=== PATIENT | female | born 1960 | race Caucasian/White ===

== ENCOUNTER → 2016-09-16 | Outpatient (CLI) | payer OTHER ==
--- NOTE | 2016-09-16 09:20 | DIAGNOSTIC IMAGING REPORT ---
CT OF THE CHEST WITHOUT IV CONTRAST CLINICAL HISTORY: Extrinsic asthma. Abnormal chest CT. Follow-up examination. PULMONARY NODULES COMPARISON STUDY: Outside chest CT dated 08/20/2015 CT DOSE: 365.68 mGy.cm TECHNIQUE: CT of the thorax was performed from the thoracic inlet to the lung bases. Images are reviewed in the axial, sagittal, and coronal planes. IV contrast was not administered for this examination. FINDINGS: Thyroid: Imaged portions of the thyroid gland are normal in appearance. Thoracic aorta: The thoracic aorta is normal in course and caliber, noting standard 3 vessel arch anatomy. Heart: The heart is normal in size and configuration, without pericardial effusion. Lungs and pleural spaces: No pleural effusions are visualized. There is no focal pulmonary consolidation. There is a 4 mm left lower lobe pulmonary nodule on image #252/331. There is a 6 mm right lower lobe perifissural nodule as visualized in image #175/331. There is a 2 mm left lower lobe pulmonary nodule as visualized in image #212/331. There is a 2.5 mm left upper lobe perifissural nodule as visualized in image #91/331. There is been interval resolution of the groundglass opacities within the right upper lobe. Mediastinum: There is no mediastinal lymphadenopathy. Jailyn: There is no evidence of pathologic hilar adenopathy given the limitations of a noncontrast study Axilla: Clear. Upper abdomen: There are postsurgical changes of a prior cholecystectomy Skeletal structures: There are no lytic or blastic osseous lesions. IMPRESSION: 1. Subcentimeter pulmonary nodules, stable or smaller than on the prior July 2015 study. 2. No evidence of focal pulmonary consolidation 3. No evidence of pathologic adenopathy. Electronically signed by: Farrukh Hagan M.D. 09/16/2016 9:19 AM Dictated Date/Time: 09/16/2016 9:12 AM
== END | disposition home or self-care (01) ==
LOC: C.CTS 08:58
PROVIDERS: ATTEND Internal Medicine Pulmonary Disease
DX: R93.8 Abnormal findings on diagnostic imaging of other specified body structures (principal)

== ENCOUNTER → 2017-04-04 | Outpatient (CLI) | payer OTHER ==
--- NOTE | 2017-04-04 15:30 | DIAGNOSTIC IMAGING REPORT ---
NECK ULTRASOUND CLINICAL HISTORY: Right lateral neck swelling. Evaluate for mass. COMPARISON STUDY: None. TECHNIQUE: Sonography of the neck at site of palpable abnormality and swelling was performed. FINDINGS: No mass, enlarged lymph node, fluid collection or other sonographic abnormality was identified within the right lateral neck. IMPRESSION: No sonographic abnormality identified within the right neck. Electronically signed by: Eugene Morfin M.D. 04/04/2017 3:29 PM Dictated Date/Time: 04/04/2017 3:28 PM
== END | disposition home or self-care (01) ==
LOC: C.ULTRBC 15:02
PROVIDERS: ATTEND Family Medicine
DX: R22.1 Localized swelling, mass and lump, neck (principal)

== ENCOUNTER → 2017-06-10 | Outpatient (CLI) | payer OTHER ==
--- NOTE | 2017-06-10 08:53 | DIAGNOSTIC IMAGING REPORT ---
SOFT TISSUE NECK WITHOUT HISTORY: 56 years-old Female NECK PAIN acute right-sided neck pain and swelling COMPARISON: Ultrasound of the thyroid 04/04/2017 TECHNIQUE: Multiple axial CT images of the soft tissues of the neck were obtained without contrast. A dose lowering technique was used consistent with the principals of ALARA. FINDINGS: The imaged intracranial structures demonstrate no acute abnormality. The nasopharynx, oral pharynx, and hypopharynx are unremarkable. The vallecula and Piriform sinuses are symmetric. Epiglottis and aryepiglottic folds are unremarkable. The glottis and subglottic airway are unremarkable. No dominant thyroid nodule identified. The parotid and submandibular glands are unremarkable. No peritonsillar abscess or retropharyngeal soft tissue swelling. Scattered nonenlarged level 2 lymph nodes are present bilaterally, likely physiologic. Lung apices are clear and mild biapical pleural-parenchymal scarring. Mastoid air cells and middle ear cavities are clear. Mild polypoid mucosal thickening involves the inferior right maxillary antrum. 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 Mild degenerative changes of the imaged cervical spine. Bony fusion of C2-C3. IMPRESSION: 1. No acute abnormality identified involving the soft tissues of the neck. No adenopathy or peritonsillar abscess. 2. Mild polypoid mucosal thickening of the inferior right maxillary antrum. The above report was generated using voice recognition software. It may contain grammatical, syntax or spelling errors. Electronically signed by: Guy Craven M.D. 06/10/2017 8:51 AM Dictated Date/Time: 06/10/2017 8:44 AM
== END | disposition home or self-care (01) ==
LOC: C.CTS 08:25
PROVIDERS: ATTEND Family Medicine
DX: M54.2 Cervicalgia (principal)

== ENCOUNTER → 2017-07-04 | Outpatient (CLI) | payer OTHER ==
[2017-07-04 16:31] LABS: BASO % 0.4 %; BASO ABS # 0.03 K/uL (0-0.2); COMPLETE YES; EOS % 5.1 %; HEMATOCRIT 42.9 % (37-47); IG% 0.4 %; LYMPH % 26.2 %; LYMPH ABS # 1.91 K/uL (1.2-3.4); MEAN CELL VOLUME 89.7 fL (80-100); MEAN CORPUSCULAR HEMOGLOBIN 29.7 pg (25-34); MEAN CORPUSCULAR HGB CONC 33.1 g/dl (32-36); MEAN PLATELET VOLUME 11.8 fL (7.4-10.4); MONO % 8.9 %; PLATELET COUNT 184 K/uL (130-400); RED BLOOD COUNT 4.78 M/uL (4.2-5.4)
--- NOTE | 2017-07-04 16:39 | DIAGNOSTIC IMAGING REPORT ---
CHEST 2 VIEWS ROUTINE HISTORY: 56 years-old Female J45.901 Extrinsic asthma, with acute [id number] COMPARISON: Chest radiograph 10/13/2015, chest CT 09/16/2016 TECHNIQUE: PA and lateral views of the chest FINDINGS: Cardiomediastinal and hilar silhouettes are within normal limits. There is no pneumothorax, pleural effusion, focal airspace consolidation or overt pulmonary edema. No significant hyperinflation. There is unchanged minimal biapical pleural-parenchymal scarring. Bones of the chest appear grossly intact. Prior cholecystectomy. IMPRESSION: No acute cardiopulmonary process. The above report was generated using voice recognition software. It may contain grammatical, syntax or spelling errors. Electronically signed by: Guy Craven M.D. 07/04/2017 4:38 PM Dictated Date/Time: 07/04/2017 4:36 PM
== END | disposition home or self-care (01) ==
LOC: C.RAD1850 15:38
PROVIDERS: ATTEND Internal Medicine Pulmonary Disease
DX: J45.901 Unspecified asthma with (acute) exacerbation (principal)

== ENCOUNTER → 2017-09-25 | Outpatient (CLI) | payer OTHER ==
--- NOTE | 2017-09-25 10:13 | DIAGNOSTIC IMAGING REPORT ---
(CHEST) THORAX WITHOUT CT DOSE: 365.93 mGy.cm CLINICAL HISTORY: 56 years-old Female with R91.[address] nodules on CT. Follow-up study in a patient with pulmonary nodules TECHNIQUE: Multiaxial CT images of the chest were performed without contrast. A dose lowering technique was utilized adhering to the principles of ALARA. COMPARISON: CT chest 09/16/2016 FINDINGS: Thyroid is homogeneous. No pathologic adenopathy of the chest identified. Coronary arterial disease. No aortic aneurysm. There is no pneumothorax, pleural effusion, focal airspace consolidation or overt pulmonary edema. Minimal linear and groundglass subsegmental bibasilar opacities suggest atelectasis. No lobar airspace consolidation to suggest pneumonia. Mild biapical pleural-parenchymal scarring. There are multiple bilateral fissural lymph nodes, notably along the right major fissure at the level of the right lung base as seen on images 150-1 56 of series 4 largest of which measures 5 mm. Perifissural lymph nodes are also seen adjacent to the left major fissure measuring up to 3 mm on image 161 series 4. Solid noncalcified nodules of the left lower lobe are again seen measuring up to 5 mm on image 238 series 4, also unchanged. No new or enlarged pulmonary nodules are identified. The central airways are patent. Prior cholecystectomy. No acute process of the imaged upper abdomen. Soft tissues are unremarkable. The bones appear to be intact. Schmorl's node is seen involving the superior endplate T11, unchanged. IMPRESSION: 1. No acute intrathoracic abnormality identified. 2. Bilateral perifissural lymph nodes and solid pulmonary nodules of the lungs bilaterally as above are again seen measuring up to 5 mm which appear unchanged in size and appearance from comparison study. No new or enlarging pulmonary nodules are identified. 3. No lobar airspace consolidation or pathologic adenopathy. Electronically signed by: Guy Craven M.D. 09/25/2017 10:12 AM Dictated Date/Time: 09/25/2017 9:50 AM
== END | disposition home or self-care (01) ==
LOC: C.CTS 09:31
PROVIDERS: ATTEND Internal Medicine Pulmonary Disease
DX: R91.8 Other nonspecific abnormal finding of lung field (principal)

== ENCOUNTER → 2017-11-07 | Outpatient (CLI) | payer OTHER | END | disposition home or self-care (01) | LOC: C.CPL 14:35 | PROVIDERS: ATTEND Orthopaedic Surgery | DX: S83.242A Other tear of medial meniscus, current injury, left knee, initial encounter (principal); X58.XXXA Exposure to other specified factors, initial encounter ==